=== PATIENT | female | born 1995 | race Caucasian/White ===

== ENCOUNTER → 2020-03-08 | Outpatient (CLI) | payer MEDICAID ==
[2015-05-19 17:45] VITALS: BP 95/65
[~2020-03-08] MED LIST: CELEXA 20MG20 MG/TA1 PO; VITAMIN C PURE500 M1 PO
== END ==
LOC: LAB 16:25
DX: R19.7 Diarrhea, unspecified (principal); R68.83 Chills (without fever); R05 Cough; M79.10 Myalgia, unspecified site; R09.89 Other specified symptoms and signs involving the circulatory and respiratory systems; R11.2 Nausea with vomiting, unspecified; R53.83 Other fatigue; Z20.828 Contact with and (suspected) exposure to other viral communicable diseases

== ENCOUNTER → 2021-02-15 | Outpatient (CLI) | payer MEDICAID | LOC: RAD 11:21 | DX: S22.32XA Fracture of one rib, left side, initial encounter for closed fracture (principal) ==

== ENCOUNTER → 2021-12-05 | Outpatient (CLI) | payer MEDICAID | LOC: LAB 12:08 | DX: Z20.822 Contact with and (suspected) exposure to COVID-19 (principal) ==

== ENCOUNTER 2023-07-17 13:50 | Emergency (ER) | payer MEDICAID ==
[~2023-07-17] VITALS: Ht 165.1 cm; Wt 63.6 kg
[2023-07-17 14:14] LABS: BASO # 0.02 K/mm3 (0.02-0.10); EOS # 0.09 K/mm3 (0.04-0.40); HEMATOCRIT 38.7 % (37.0-47.0); LYMPH# 2.15 K/mm3 (1.50-4.00); MEAN CELL VOLUME 92 fl (78-100); MEAN CORPUSCULAR HEMOGLOBIN 31 pg (27-31); MEAN CORPUSCULAR HGB CONC 34 g/dL (33-37); MEAN PLATELET VOLUME 8.9 fl (7.4-10.4); MONO # 0.49 K/mm3 (0.20-0.80); NEU # 6.39 K/mm3 (1.40-6.50); PLATELET COUNT 373 K/mm3 (130-400); RED BLOOD COUNT 4.21 M/mm3 (4.10-5.30); RED CELL DISTRIBUTION WIDTH 11.8 % (11.5-14.5); WHITE BLOOD COUNT 9.1 K/mm3 (4.8-10.8)
[2023-07-17 14:22] LABS: ALBUMIN 4.6 g/dL (3.5-5.0); SODIUM 137 mmol/L (136-145)
[2023-07-17 14:24] LABS: CALCIUM 9.8 mg/dL (8.3-10.5)
[2023-07-17 14:25] LABS: GLUCOSE 153 mg/dL (65-105); TOTAL PROTEIN 7.5 g/dL (6.4-8.3)
[2023-07-17 14:26] LABS: CARBON DIOXIDE 23 mmol/L (22-29)
[2023-07-17 14:27] LABS: TOTAL BILIRUBIN 0.3 mg/dL (0.2-1.2)
[2023-07-17 14:29] LABS: D-DIMER 0.28 mg/L FEU (0.15-0.50)
[2023-07-17 14:30] LABS: AST-SGOT 14 U/L (5-34)
[2023-07-17 14:31] LABS: ALT/SGPT 11 U/L (0-55)
[2023-07-17 14:41] LABS: TROPONIN-I < 0.030 ng/mL (0.00-0.033)
[2023-07-17] MEDS ORDERED: Orphenadrine 60 MG/2ML AMP IV ONE (15:00)
[2023-07-17] MEDS ORDERED: Ketorolac 30 MG/ML VIAL IV ONE (15:00)
[2023-07-17] MEDS ORDERED: Lidocaine 4% Topical Patch TP ONE (15:00)
[2023-07-17] MEDS ORDERED: CYCLOBENZAPRINE10 M1 PO (15:29)
[2023-07-17 15:43] VITALS: BP 125/66
== END 2023-07-17 15:43 | disposition home or self-care (01) ==
LOC: ED 13:50
PROVIDERS: Physician Assistant
DX: R07.89 Other chest pain (principal); R00.0 Tachycardia, unspecified
CPT/HCPCS: J1885; J2360

== ENCOUNTER → 2024-04-22 | Outpatient (CLI) | payer MEDICAID ==
[~2024-04-22] MED LIST changes: +CYCLOBENZAPRINE10 M1 PO
[2024-04-22 16:05] LABS: URINE APPEARANCE SLIGHTLY CLOUDY (CLEAR); URINE COLOR YELLOW (YELLOW); URINE PROTEIN(semi-quant) 1+ (NEGATIVE)
[2024-04-22 16:06] LABS: URINE BILIRUBIN NEGATIVE (NEGATIVE); URINE BLOOD 2+ (NEGATIVE); URINE GLUCOSE NEGATIVE (NEGATIVE); URINE KETONE NEGATIVE (NEGATIVE); URINE LEUKOCYTE ESTERASE 1+ (NEGATIVE); URINE MUCUS PRESENT (NOT PRESENT); URINE NITRATE NEGATIVE (NEGATIVE); URINE WBC 31-50 /hpf (0-3)
== END ==
LOC: LAB 15:29
PROVIDERS: Family Medicine
DX: R10.9 Unspecified abdominal pain (principal)

== ENCOUNTER → 2024-05-20 | Outpatient (CLI) | payer MEDICAID ==
[2024-05-20 16:34] LABS: PH-URINE 7.5 (5.0 - 8.0); URINE APPEARANCE CLOUDY (CLEAR); URINE BILIRUBIN NEGATIVE (NEGATIVE); URINE BLOOD 1+ (NEGATIVE); URINE COLOR YELLOW (YELLOW); URINE GLUCOSE NEGATIVE (NEGATIVE); URINE KETONE TRACE (NEGATIVE); URINE LEUKOCYTE ESTERASE NEGATIVE (NEGATIVE); URINE NITRATE POSITIVE (NEGATIVE); URINE PROTEIN(semi-quant) NEGATIVE (NEGATIVE)
== END ==
LOC: LAB 16:09
PROVIDERS: Internal Medicine
DX: N39.0 Urinary tract infection, site not specified (principal)